=== PATIENT | female | born 1940 | race Caucasian/White ===

== ENCOUNTER → 2019-06-22 16:23 | Outpatient (BNVA) | payer MEDICARE, SELFPAY | PROVIDERS: Family Provider Nurse Practitioner Family; PCP Internal Medicine; Visit Provider Internal Medicine | DX: K52.9 Noninfective gastroenteritis and colitis, unspecified (principal); R19.7 Diarrhea, unspecified; R63.4 Abnormal weight loss | CPT/HCPCS: 80053; 82607; 83516; 84443; 85025; 85651 ==

== ENCOUNTER 2019-06-29 08:00 | Day surgery (SDC) | payer MEDICARE, MEDICAID, SELFPAY ==
[2019-06-26 13:34] VITALS: BMI 14.8
--- NOTE | 2019-06-29 08:21 | ANES.PREANE2 ---
Pre-Anesthetic Assessment Pre-Anesthetic Assessment: Height/Weight: Height 1.6 m Weight 38.102 kg Preop Diagnosis: Chronic diarrhea Proposed Procedure: Operation Date: 06/29/19 09:30 Proposed Procedures p EGD/COLON 44115/39237/ K52.9/ R63.4(Not Applicable) - Kan Lombardi MD s Colonoscopy(Not Applicable) - Kan Lombardi MD Last Intake: 21:00 Social: Packs per day: 1 Pack years: 58 Exam: Pre-Anes Outpt Exam: alert, oriented x 3 and regular rate & rhythm Additional Exam Findings (including area of procedure): diffuse rhonchi Airway: Submandibular: WNL Cervical ROM: WNL MP: 1 Dentition: False Pulmonary: Pulmonary: COPD Comments: ER 2 weeks for excacerbation CV/HEM: CV/HEM: HTN and ND Comments: 2010, CABG x 3 less than 1 block secondary leg weakness GI: Comments: remote hx bleeding past, 40y abdominal cramping & diarrhea Musc/skel: Musc/skel: Lower Back Pain Anesthetic Plan: ASA status: 3 PFSH Anesthesia PFSH: Social History (Updated 06/22/19 @ 13:30 by STEPHIE Lopez) Smoking and tobacco status: former smoker Alcohol intake: never History of recent travel: No Data Anesthesia Cardiac Studies: No Data to Display
--- NOTE | 2019-06-29 08:56 | P.HPUD_ITS ---
H&P update H&P Update: DATE OF SURGERY/PROCEDURE: 06/29/19 DATE H&P PERFORMED: 08/06 H&P UPDATE INFORMATION: H&P completed within last 30 days, No changes to prior documentation and H&P is in [facility] EMR on date indicated PREOP DIAGNOSIS: a PLANNED PROCEDURE: Operation Date: 06/29/19 09:30 Proposed Procedures p EGD/COLON 92607/90159/ K52.9/ R63.4(Not Applicable) - Kan Lombardi MD s Colonoscopy(Not Applicable) - Kan Lombardi MD Full H&P Perinent History: Family History: Family History (Updated 05/26/19 @ 09:42 by STEPHIE Lopez) Father Heart disease Brother Heart disease Sister Osteoporosis Social History: Social History Smoking and tobacco status: former smoker Alcohol intake: never History of recent travel: No
[2019-06-29] MEDS: carvedilol 6.25 mg Tablet PO (09:03)
[2019-06-29 09:04] VITALS: BP 105/64; PULSE 100; RESP 20; TEMP 36.4; O2SAT 97
[2019-06-29] MEDS: sodium chloride 0.9% 1,000 ML 30 ML (09:19)
--- NOTE | 2019-06-29 09:24 | ANES.PREANE2 ---
Pre-Anesthetic Assessment Pre-Anesthetic Assessment: Height/Weight: Height 1.6 m Weight 38.102 kg Temp Pulse Resp BP Pulse Ox 97.5 F L 100 20 H 105/64 97 06/29/19 09:04 06/29/19 09:04 06/29/19 09:04 06/29/19 09:04 06/29/19 09:04 Preop Diagnosis: chronic diarrhea Proposed Procedure: Operation Date: 06/29/19 09:30 Proposed Procedures p EGD/COLON 39831/09850/ K52.9/ R63.4(Not Applicable) - Kan Lombardi MD s Colonoscopy(Not Applicable) - Kan Lombardi MD Familial anesthetic complications: none Was Beta Donald taken within 24 hours: Yes (0900) Last intake: Intake Last Liquid Date 06/28/19 Last Liquid Time 08:30 Last Solid Date 06/27/19 Last Solid Time 23:00 Social: Social History: Tobacco (3 ppd) Exam: Pre-Anes Outpt Exam: alert, oriented x 3, clear to auscultation bilaterally and regular rate & rhythm Airway: Submandibular: WNL Cervical ROM: WNL MP: 2 Dentition: False (U&L) History/ROS: No significant history except as noted Pulmonary: Pulmonary: COPD (emphysema), Cough and MOORE (uses inhalers twice a week) CV/HEM: CV/HEM: [place] (CABG x3) Comments: AAA (cardiologists watching) : : None reported Hepatic: Hepatic: None reported GI: GI: PUD Metabolic: Metabolic: None reported Musc/skel: Musc/skel: Lower Back Pain (L2-L4 old compression fractures) and OA/DJD Neuropsych: Neuropsych: Anxiety Anesthetic Plan: ASA status: 3 Anesthesia: Anesthesia Evaluation and MAC Risk of > 500 ml blood loss (7ml/kg in children): No Meds/Allergies Current Medications: Current Medications Generic Name Dose Route Start Last Admin Trade Name Freq PRN Reason Stop Dose Admin Carvedilol 6.25 mg 06/29/19 09:00 06/29/19 09:03 Coreg PO 6.25 mg BID SETH Administration PFSH Anesthesia PFSH: Social History (Updated 06/22/19 @ 13:30 by STEPHIE Lopez) Smoking and tobacco status: former smoker Alcohol intake: never History of recent travel: No Data Anesthesia Cardiac Studies: No Data to Display
[2019-06-29 10:12] VITALS: BP 98/50; PULSE 67; RESP 16; TEMP 36.4; O2SAT 96
[2019-06-29 10:27] VITALS: BP 101/54; PULSE 68; RESP 18; O2SAT 100
--- NOTE | 2019-06-29 10:39 | ANE.PACU2 ---
 Inpatient post-anesthesia follow up: Airway intact: Yes Vital signs: Temperature 97.6 F Pulse Rate 68 Respiratory Rate 18 Blood Pressure 101/54 Pulse Oximetry 100 Oxygen Delivery Me thod Room Air Oxygen Flow Rate 2 Fraction of Inspir ed Oxygen Hydration adequate: Yes Nausea and vomiting: No Mental status: Baseline
[2019-06-29 10:43] VITALS: BP 129/68; PULSE 74; RESP 18; O2SAT 97
[2019-06-30 05:54] LABS: H. Pylori / CLO Test Negative
== END 2019-06-29 10:46 | disposition home or self-care (01) ==
PROVIDERS: Family Provider Nurse Practitioner Family; PCP Internal Medicine; Visit Provider Internal Medicine
PROC: 0DJ08ZZ Inspection of Upper Intestinal Tract, Via Natural or Artificial Opening Endoscopic (ICD-10-PCS; CPT 43235; principal; 2019-06-29 09:30)
PROC: 0DJD8ZZ Inspection of Lower Intestinal Tract, Via Natural or Artificial Opening Endoscopic (ICD-10-PCS; CPT 45378; 2019-06-29 09:30)
DX: R19.7 Diarrhea, unspecified (principal); Z79.891 Long term (current) use of opiate analgesic; Z79.01 Long term (current) use of anticoagulants; Z82.49 Family history of ischemic heart disease and other diseases of the circulatory system; Z87.891 Personal history of nicotine dependence; R63.4 Abnormal weight loss; Z68.1 Body mass index [BMI] 19.9 or less, adult; J43.9 Emphysema, unspecified; I25.10 Atherosclerotic heart disease of native coronary artery without angina pectoris; E78.5 Hyperlipidemia, unspecified
CPT/HCPCS: 12345; 43239; 45378; 82274; 83630; 87077; 87493; 87505; J2704; J7030; J7611

== ENCOUNTER 2019-07-24 06:32 | Day surgery (SDC) | payer MEDICARE, MEDICAID, SELFPAY ==
[2019-07-23 10:11] VITALS: BMI 13.7
[2019-07-24] VITALS (21 sets, daily range): BP systolic 98–181; BP diastolic 7–120; PULSE 85–99; RESP 18–36; TEMP 36.7–37.2; O2SAT 86–100
--- NOTE | 2019-07-24 | CT_ITS ---
Guided Bronchoscopy Planning CT images; total exam DLP: 552.05 mGy-cm MTDD
--- NOTE | 2019-07-24 07:05 | ANES.PREANE2 ---
Pre-Anesthetic Assessment Pre-Anesthetic Assessment: Height/Weight: Height 1.63 m Weight 36.287 kg Temp Pulse Resp BP Pulse Ox 98.7 F 90 18 98/7 98 07/24/19 06:45 07/24/19 06:45 07/24/19 06:45 07/24/19 06:45 07/24/19 06:45 Preop Diagnosis: Right upper lobe lung mass Proposed Procedure: Operation Date: 07/24/19 08:10 Proposed Procedures p Ebus with navagational bronoscopy(Not Applicable) - MD vijay Ribeiro Veran(Not Applicable) - Jordin Alberts MD Familial anesthetic complications: NO trouble with anehesia warfarin on saturday Was Beta Donald taken within 24 hours: Yes Last intake: Intake Last Liquid Date 07/23/19 Last Liquid Time 18:00 Last Solid Date 07/23/19 Last Solid Time 18:00 Social: Social History: Tobacco Packs per day: 1 ppd Exam: Additional Exam Findings (including area of procedure): coarse breath sounds, diminished Airway: Cervical ROM: WNL MP: 2 Dentition: False Additional comments: edentulous Pulmonary: Pulmonary: COPD Comments: emphysema CV/HEM: CV/HEM: Arrythmia, HTN and AL (10 years ago) Comments: pacer/defibrillatior - per patient's family the defibrillator is deactivated because her leads became corrroded and they couldn't replace it because she was to frail at the time. She decided to just have it deactivated and risk cardiac arrest over the risk of the operation. Pacer supposedly still works? EF 30% ( only 30% of her heart is still working ) AAA : : None reported Hepatic: Hepatic: None reported GI: GI: PUD Comments: recovering from chronic diarrhea, no diarrhea for 4-6 weeks now after yrn strong Metabolic: Metabolic: None reported Musc/skel: Comments: severe osteoporisis (brokekn arms, broken hip) - careful with positionig Neuropsych: Neuropsych: None reported Anesthetic Plan: ASA status: 4 Anesthesia: General Risk of > 500 ml blood loss (7ml/kg in children): No PFSH Anesthesia PFSH: Social History (Updated 07/23/19 @ 10:07 by Rosalina Cardenas) Smoking and tobacco status: current every day smoker cigarettes Packs smoked per day: 1 Years cigarettes smoked: 57 Quit status (tobacco): has tried quititng Number of times tried to quit tobacco: 4 Second hand smoke exposure: Yes Smoking risk assessment/counseling performed?: Yes Alcohol intake: never Household members: spouse Marital status: Current occupational status: retired History of recent travel: No Current gender identity: Female Data Anesthesia Cardiac Studies: No Data to Display
--- NOTE | 2019-07-24 08:04 | W.PM.OPSUD ---
Surgery/Procedure H&P Update DATE OF PROCEDURE: July 24, 2019 DATE H&P PERFORMED: 06/22/19 H&P UPDATE INFORMATION: I have reviewed H&P completed within last 30 days, I have examined patient prior to procedure and No changes to prior documentation PREOP DIAGNOSIS: Right upper lobe lung mass PRIMARY INDICATION FOR PROCEDURE: Right upper lobe lung mass suspected lung malignancy. PLANNED PROCEDURE: Operation Date: 07/24/19 08:10 Proposed Procedures p Ebus with navagational bronoscopy(Not Applicable) - MD vijay Ribeiro(Not Applicable) - Jordin Alberts MD
[2019-07-24] MEDS: lidocaine 1% INJ 20 mL XX (08:50)
--- NOTE | 2019-07-24 09:59 | SUR.OPER ---
balloon removed intact
--- NOTE | 2019-07-24 10:07 | PM.OP ---
Operative Report Date of procedure: July 24, 2019 Pre-op Diagnosis: Right upper lobe lung mass Post-op diagnosis: same Brief History: 79-year-old female with emphysema, COPD comes in with right upper lobe lung mass. Had a recent PET/CT which showed elevated FDG uptake in the right upper lobe lung mass. No significant evidence of metastatic disease. Procedure: Name of the procedure: Bronchoscopy with inspection of the airway, endobronchial ultrasound-guided transbronchial needle aspiration of lymph nodes, navigational bronchoscopy guided transbronchial biopsies, fine-needle aspiration and cytology and control of bleeding. Indication: Right upper lobe lung mass Anesthesia: General anesthesia. Local anesthesia: The nazanin in the right and left mainstem bronchi were anesthetized with 1% lidocaine, 3 mL. Description of the procedure: The procedure was explained to the patient and the consent was obtained. The patient was brought to the OR. The patient underwent endotracheal intubation for general anesthesia. Timeout was performed. Following induction of general anesthesia, the bronchoscope was advanced through the ET tube. The lower trachea appeared to normal. The nazanin was sharp. The nazanin, the right and left mainstem bronchi are anesthetized with 1% lidocaine. In a systematic manner bilateral bronchial tree was then examined. The bronchoscope was advanced into the left mainstem bronchus. There was no erythema,mucus and areas of cobblestoning. The left upper lobe, lingula and left lower lobe bronchi were examined up to the third subsegmental level and no abnormalities were identified. The bronchoscope was then introduced into the right mainstem bronchus. The right upper lobe, right middle lobe and right lower lobe bronchi were examined up to the third subsegmental level and no abnormalities were identified. There was mild airway erythema throughout the lung. The right upper lobe mass was then reached using the navigational bronchoscopy. Multiple transbronchial biopsy, fine-needle aspiration and cytology samples are obtained. The endobronchial ultrasound was introduced through the ET tube. No significant mediastinal and hilar lymphadenopathy was identified with the ultrasound. Transbronchial needle aspiration was performed from 7, 10 R lymph nodes. Samples: 1. The transbronchial biopsies are sent for histopathology.. 2. The fine-needle aspiration and Cytobrush are sent for cytology. 3. Transbronchial needle aspiration of 7 and 10 R lymph node stations were sent for cytology. Complications: There was no immediate complications. Follow-up: 1. Follow-up with me in 2 weeks time.
--- NOTE | 2019-07-24 10:28 | XR_ITS ---
WS: [id number] XR chest 1V portable [id number] REASON FOR EXAM: post bronchoscopy FINDINGS: Fullness in the right apex the lung is seen suggesting a mass defect. There is also a left pleural effusion seen. A dual electrode pacemaker is seen. Comparison is made to November 08, 2008 the fullness in the right hilum not seen. XR/XR chest 1V portable [id number] IMPRESSION: Suspect neoplasm right upper lung There is left lower lung pleural effusion Dual electrode pacemaker Previous sternotomy.
--- NOTE | 2019-07-24 11:59 | SUR.PHASEI ---
1017 RECIEVED PT SLEEPY WITH WEAK RESP SATS 86% ON 8LMASK PT HOB UPT PT AWAKES TO VOICE PT ENCOURAGED TO COUGH AND DEEP BREATH ALBUTIEROL NEB ORDERED AND CRAN AND DR MICHEL AT BEDSIDE. 1018 NEB STARTED ON 10 L MASK SATS STILL LOW PT LESS ALERT NOWL 1024 PT BAGGED BY ANIMAL PATHOLOGIST AT BEDSIDE AND RESP CALLED FOR BIPAP SET UP 1028 PT ON BIPAP REMAINS RESTLESS BUT NOT CONCIOUS, ABG ORDERED RT AT BEDSIDE ATTEMPTING IN RT WRIST. O2 UP TO 60%SATS 88% 1054 DR ORELLANA AT BEDSIDE, AMANDA MACK AT BEDSIDE FAMILY UPDATED BY JAVA FLEX DEVELOPER. PT AWAKES EASILY NOW RESP STILL RAPID, ABD RESULTS AT BEDSIDE, BUT PT IS IMPROVING, WILL MONITOR CLOSELY FIO2 DOWN TO 30 % 1112 FAMILY AT BEDSIDE PT ALERT AND TALKATIVE PT OFF BIPAP ON RA SATS DOWN TO 88% PT PLACED ON 2LNC SATS QUICKLY UP TO 94% 1130 PT ALERT VERBALIZED APPROP SATS 100% ON 2LNC PT SLEEPS IF NOT DISTURBED PT TO OPS WILL CONTINUE TO MONITOR CLOSELY, VSS. 1135 PT TO OPS AWAKE ALERT TALKATIVE WITH FAMILY, SATS 99% O2 DOWN TO 1LNC HANDOFF AT BEDSIDE
[2019-07-24] MEDS: sodium chloride 0.9% 1,000 ML 30 ML IV (12:47)
[2019-07-25 19:26] LABS: ABG PCO2 53.8 mmHg (35-45); ABG PH Result 7.25 (7.35-7.45)
[2019-07-25 19:27] LABS: Base Excess ABG -4.1 mmol/L (-2.0-2.0); Blood Gas Operator Identificat GLC; Blood Gas Sample Site RBRACH; Blood Gas Sample Type ARTERIAL; HCO3 ABG 23.5 mmol/L (22-26); Oxygen Device BIPAP
[2019-07-25 19:28] LABS: Arterial Blood Gas Hematocrit 33.5 % (37-47); Blood Gas CCRB Time 1050; Carboxyhemoglobin 1.2 %THgb (0.4-20.1); Methemoglobin 0.3 % (0.4-1.5); Total Hemoglobin 10.9 g/dL (12-16)
== END 2019-07-24 12:40 | disposition home or self-care (01) ==
PROVIDERS: Anesthesiology; Family Provider Nurse Practitioner Family; PCP Family Medicine; Visit Provider Internal Medicine Critical Care Medicine
PROC: BB4BZZZ Ultrasonography of Pleura (ICD-10-PCS; CPT 31623; principal; 2019-07-24 08:10)
PROC: 0BJ08ZZ Inspection of Tracheobronchial Tree, Via Natural or Artificial Opening Endoscopic (ICD-10-PCS; CPT 31622; 2019-07-24 08:10)
DX: R91.8 Other nonspecific abnormal finding of lung field (principal); J43.9 Emphysema, unspecified; F17.210 Nicotine dependence, cigarettes, uncomplicated; I10 Essential (primary) hypertension; I25.2 Old myocardial infarction; Z79.01 Long term (current) use of anticoagulants; Z82.49 Family history of ischemic heart disease and other diseases of the circulatory system
CPT/HCPCS: 31623; 31628; 31629; 31652; 12345; 71045; 71250; 77011; 82805; 88112; 88173; 88305; 88307; 94660; J0330; J2001; J2370; J2405; J2704; J3010; J3490; J7030; J7611

== ENCOUNTER 2019-08-05 09:44 | Outpatient (CLI) | payer MEDICARE, MEDICAID, SELFPAY ==
--- NOTE | 2019-08-05 15:29 | N.ONRAD NP_ITS ---
Radiation Oncology New Patient Visit Patient: Amparo Lauren MR#: [id number] : 1940> Age: 79> Sex: Female> Dictated by: Dr. Eduin Shaffer Date of Service: 08/05/2019 Referring Physician(s) : Dr. Modi Diagnosis: Lung, right, upper lobe, atypical cells on biopsy that are highly suspicious for malignancy in a mass that has an overwhelming appearance of malignancy on both CT and PET scan Radiotherapy to date: Summary > No prior radiation therapy. Chief Complaint / History of Present Illness: Mrs. Lauren is a 79-year-old lady who has a significant past medical history of heart disease and COPD who presented in late May with a COPD exacerbation. She was experiencing enough chest discomfort that a CTA was performed. That study revealed a highly suspicious appearing mass measuring about 3 cm in the apex of the right lung. A PET scan was performed to 07/04/19. The right upper lobe mass measured 3.3 x 2.7cm, was solid, and had a SUV of 27. It was specifically stated the mass represented malignancy unless otherwise proven. A small amount of activity was noted in an upper right hilar node, benign versus malignant. She saw Dr. Alberts and underwent navigational bronchoscopy on 07/24/2019. He reached the area of the tumor in the upper lobe with navigation. The needle biopsy from the mass showed a fragment of atypical cells highly suspicious for malignancy. The pathologist indicated that the findings were not completely diagnostic of malignancy. Washings revealed inflammatory cells but no evidence of malignancy. Lymph nodes from station 7 and R 10 were negative. Mrs. Thomas has significant medical problems, her performance status is poor, she only weighs 78 pounds, and she is not a good candidate for surgery at all. She is referred for evaluation for SBRT. Current Medications: Carvedilol, coumadin, megestrol Acetate, ocuvite Extra, vitamin B12, zolpidem Tartrate. Allergies: Sulfa Antibiotics. Medical History: - Chronic obstructive pulmonary disease, - congestive heart failure, - coronary artery disease, - gastroesophageal reflux disease, - hyperlipidemia. No history of collagen vascular disease. No previous radiation therapy. Surgical History: Cholecystectomy, hip surgery, implanted cardioverter-defibrillator and open heart surgery. Family History: Father is at age 52 having experienced heart disease. Mother is at age 89 having experienced natural causes. Brother is at age 55 having experienced heart disease. Brother is at age 60 having experienced heart disease. Sister is at age 65 having experienced pneumonia. Sister is at age 80. sister that was 80 had cancer all over Social History: Last screened on 08/05/2019 - Current every day smoker 1.0 pack/day for 57 years (57 pack years). Last screened on 08/05/2019 - Never drank. Patient indicated use of the following products: cigarettes. Current Complaints / Review of Systems: . Vital Signs: Performed on 08/05/2019 10:59 AM Height - 52.50 in, Weight - 81.0 lbs (high), BSA - 1.15 sq.m, BMI - 20.66, Temperature - 97.2 f (low), Pulse - 75 /min, Respiration - 18 /min, O2 Sat - 100 %, Pain - 4 and BP - 102/ 60 mm(hg)(/low). Physical Exam: Alert, oriented, no distress. She appears chronically ill and poorly nourished. No cervical, or supraclavicular lymphadenopathy. She has no tenderness over the brachial plexus on the right. Lungs clear to percussion, somewhat hyperresonant. On auscultation breath sounds are diminished bilaterally but are largely clear. No rales or wheezes. She had a few inspiratory rhonchi on the right. Heart rhythm was regular. No murmur or gallop or rub noted. Abdomen no distention. No organomegaly or mass or tenderness. Musculoskeletal - she has a normal but slightly unsteady gait. She had assistance getting on the exam table. No bone tenderness to palpation or percussion. Performance Status: KPS 50/100 Pathology: See HPI. Lab: Imaging: See HPI Impression: Mrs. Lauren is an elderly lady with multiple medical problems who has a right upper lobe lung mass that is overwhelmingly malignant on imaging. On biopsy she says she has very suspicious findings for malignancy. Based on these findings, I feel it is very safe to presume that she has carcinoma of the lung. Her medical problems and overall performance status preclude surgery as an option. She has been referred for SBRT. I feel Mrs. Thomas is a good candidate for SBRT. I reviewed her imaging. The mass is near the apex of the lung but is posterior. I do not feel that treatment will put the brachial plexus at any major risk. I did discuss that with her and cautioned her there could be chronic arm pain or weakness if the brachial plexus is injured by treatment. I discussed the logistics of SBRT. I discussed that typically acute side effects are minimal, primarily mild fatigue. I discussed that she will develop some pneumonitis and ultimately fibrosis around the area of the tumor. I told her that this fibrosis will be small in volume and not likely to result in long-term dyspnea. I discussed that her heart will be well out of the field. She does have a pacemaker that will need to be monitored. I discussed the current pacemaker protocol with the chief therapist and we will follow these guidelines. I discussed the risk of skin reaction and chest wall pain that could be chronic. Mrs. Lauren wishes to proceed with SBRT is recommended. Plan: Simulation will be scheduled. Signed by: 08/05/2019 3:28:26 PM <<Signature on File>> Time spent with patient: CPT Code: CPT Code:
--- NOTE | 2019-08-06 15:31 | ONC CON_ITS ---
Dr. Modi New Patient Note Patient: Amparo Lauren Unit #: [id number]: 1940 Dicatated By: More Modi M.D.Date of Visit: Aug 05, 2019 Onc MED New Patient/Consult Referring Physician: Dr. LEIGHTON ORELLANA M.D. History of Present Illness: Mrs. Amparo Lauren, is a 79-year-old female with history of coronary artery disease status post bypass ???2 in 2008 status post ICD implantation in 2009, congestive heart failure ejection patient 30%, GERD, from emphysema, COPD, found to have a right upper lung mass underwent CT PET scan on 07/04/2019 which showed 3.3 x 2.7 cm solid right upper lobe mass SUV 27. And mild activity in the right upper hilar lymph node with an SUV of 3.1 subsequently underwent bronchoscopy on 07/24/2019, bronchial wash shows no evidence of dysplastic or neoplastic process but FNA right upper lobe mass showed non-small cell carcinoma and there are too few cells present in the smear to perform molecular studies that would differentiated adenocarcinoma for squamous cell carcinoma. 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 Because of her poor pulmonary reserve and advanced stage cardiac condition and overall poor performance status surgery was not considered and now being evaluated for combined chemoradiation Long-standing history of smoking still smoke about pack a day denies alcohol use Patient denies any hemoptysis or hematemesis, denies any headaches or blurred vision or double vision, denies any fever chills. Denies any nausea or vomiting . Patient and her daughter said she would not consider chemotherapy regardless but agreed to see radiation oncology. Past Medical History: Ms. Lauren's medical history consists of chronic obstructive pulmonary disease, congestive heart failure, coronary artery disease, gastroesophageal reflux disease, and hyperlipidemia. Past Surgical History: Ms. Huis surgical/procedural history consists of cholecystectomy, hip surgery, implanted cardioverter-defibrillator, and open heart surgery. Medications: Carvedilol 1 Tablet (of 6.25 mg) Oral b.i.d., Coumadin 1 Tablet (of 2 mg) Oral daily, Megestrol Acetate 1 Tablet Oral daily, Ocuvite Extra 1 Tablet Oral daily, Omeprazole 1 (20 mg) Capsule Delayed Release Oral daily, Vitamin B12 1 Tablet Oral daily, Zolpidem Tartrate 1 Tablet Oral daily Allergies: Sulfa Antibiotics Social History: Ms. Lauren is and she is retired. She is a daily smoker who has smoked 1.0 pack/day for 57 years. She has no history of drinking. She has indicated exposure to the following products: cigarettes. Family History: Ms. Lauren's mother at age 89: natural causes. Ms. Lauren's father at age 52: heart disease. Ms. Lauren has 2 brothers: 2 . Ms. Lauren's first brother's heart disease. Another brother's heart disease. She has 2 sisters: 2 . Ms. Lauren's first sister's pneumonia. sister that was 80 had cancer all over. Review Of Symptoms: Constitutional - Appetite is poor and weight is decreasing. No fever, chills, hot flashes, or night sweats. Energy level is poor, ENMT - Positive for sinus congestion/drainage. No mouth sores. No sore throat or difficulty swallowing, Hematologic/Lymphatic - Positive for easy bruisnig, Respiratory - Positive for shortness of breath and cough. No pleuritic pain or hemoptysis, Cardiovascular - No angina pain. No palpitations, Gastrointestinal - No nausea or vomiting. No heartburn or acid reflux. No diarrhea or constipation. No blood in the stool or black stools, Genitourinary (F) - No dysuria or hematuria. No urinary frequency. No urgency or incontinence, Musculoskeletal - Positive for back pain, Neurologic - No headache. Occasional dizziness. No numbness/paresthesias or other focal neurologic symptoms, Psychiatric - Positive for anxiety and depression. Vital Signs: Performed on Aug 05, 2019 14:41: 52.50 in, 81.0 lbs, 97.2 F, 75, 18, 102/60 mm(hg), 100 %, 0, Performed on Aug 05, 2019 14:41: 20.662 kg/m2, and Performed on Aug 05, 2019 10:59: 1.15 sq.m. Performance Status: 2 - Ambulatory/capable of all self-care, unable to perform any work activities. Up and about more than 50% of waking hours. (ECOG) Physical Examination: ENMT - No oral exudates, ulcers, masses, thrush or mucositis. Oropharynx clear. Tongue normal, Respiratory - poor air entry otherwise clear, Cardiovascular - Regular rate and rhythm of heart, Abdomen - Non-tender, non-distended, . Good bowel sounds. No guarding or rebound tenderness. No pulsatile masses, Extremities - no edema. Lab/Imaging: Most recent lab results are not available for this patient. Impression: Non-small cell lung cancer per FNA right upper lobe done on 07/24/2019, cytology showed too few cells present in the severe to perform special molecular studies that will differentiated adenocarcinoma from squamous cell carcinoma. 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 Plan: Discussed with patient regarding her disease status and treatment options, due to her underlying poor pulmonary reserve and advanced stage cardiac condition and overall poor performance status, patient is not a candidate for surgery so other option would be combined chemoradiation but patient has decided not to proceed with chemotherapy rather consider radiation alone. Discussed with patient regarding the role of concurrent chemotherapy which may improve overall response and survival but with significant increase in toxicity especially with underlying comorbid conditions. Patient and her daughter decided not to proceed with chemotherapy knowing the risk versus benefits. So we'll refer her to radiation oncology for evaluation and management, patient also opted to follow with , in future for follow-up as she will be seeing him regular basis. We will see her on as-needed basis. Signed By: More Modi M.D. <<Signature on File>>
== END 2019-08-05 09:45 | disposition home or self-care (01) ==
LOC: ONCMED 09:44
PROVIDERS: Family Provider Nurse Practitioner Family; PCP Family Medicine; Referring Provider Internal Medicine Critical Care Medicine; Visit Provider Internal Medicine Hematology & Oncology
DX: C34.11 Malignant neoplasm of upper lobe, right bronchus or lung (principal); I50.9 Heart failure, unspecified; I25.10 Atherosclerotic heart disease of native coronary artery without angina pectoris; K21.9 Gastro-esophageal reflux disease without esophagitis; E78.5 Hyperlipidemia, unspecified; F17.210 Nicotine dependence, cigarettes, uncomplicated; J43.9 Emphysema, unspecified; Z79.01 Long term (current) use of anticoagulants; Z95.810 Presence of automatic (implantable) cardiac defibrillator; Z95.1 Presence of aortocoronary bypass graft
CPT/HCPCS: 99203; 99204; G0463

== ENCOUNTER 2019-08-12 07:32 | Outpatient (RCR) | payer MEDICARE, MEDICAID, SELFPAY ==
--- NOTE | 2019-08-12 | CT_ITS ---
Radiation Therapy Planning CT images; total exam DLP: 931.12 mGy-cm MTDD
== END 2019-08-18 23:59 | disposition home or self-care (01) ==
LOC: ONCMED 07:32
PROVIDERS: Family Provider Nurse Practitioner Family; PCP Family Medicine; Visit Provider Specialist
DX: C34.11 Malignant neoplasm of upper lobe, right bronchus or lung (principal)
CPT/HCPCS: 77334

== ENCOUNTER 2019-09-14 06:52 | Outpatient (RCR) | payer MEDICARE, MEDICAID, SELFPAY ==
--- NOTE | 2019-09-08 15:23 | ONCRAD TMN_ITS ---
Radiation Oncology Weekly Treatment Management Patient: Amparo Lauren MR#: [id number] : 1940> Age: 79> Sex: Female Dictated by: Everette Mullins Date of Service: 09/08/2019 Referring Physician(s) : More Modi M.D. 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 ID: [id number], Energy: 15X/6X, Dose/Fx (cGy): 1,000, #Fx: 2 / 5, Dose Correction (cGy): 0, Total Dose (cGy): 2,000, Start Date: 09/01/2019, Elapsed Days: 2 Current Complaints/Interval History: Notes some increase in fatigue. No change in breathing. Minimal inferior chest pain with deep breath. Some diarrhea x 3 this AM controlled with Imodium x 1. Holding fluids down well. No cough,F, C, N, or V. Smoking very little now. Constitutional Complains of lack of appetite and fatigue. Denies fever and change in weight. Cardiovascular Denies chest pain, dyspnea, edema and palpitations. Respiratory Complains of cough Patient states her cough and SOB are the same as they have been over the past few weeks and have not worsened., dyspnea and pleuritic chest pain. Gastrointestinal Complains of diarrhea Patient states she is using immodium, which is helping to control her diarrhea. States she has about 3-4 bowel movements per day.. Denies abdominal pain, heartburn / dyspepsia, nausea and vomiting. Genitourinary (F) Denies dysuria, frequency, hematuria and urgency. Musculoskeletal Complains of bone pain Patient states she has some pain in her thighs when she goes to walk after sitting extended periods of time. States this has been going on for a while .. Denies joint pain. Neurologic Denies dizziness and headaches. Psychiatric Complains of depression Patient states she has some depression, but is taking medications for it and feels it is under control right now.. Current Medications: Carvedilol, coumadin, hydrocodone-Acetaminophen, megestrol Acetate, ocuvite Extra, omeprazole, vitamin B12, zolpidem Tartrate. Allergies: Sulfa Antibiotics. Vital Signs: Performed on 09/08/2019 3:12 PM Height - 62 in, Temperature - 98.2 f, Pulse - 84, Respiration - 18, O2 Sat - 97 %, Pain - 1 and BP - 102/ 60 mm(hg)(/low). Physical Exam: Appears stable, no skin erythema or desquamation. Performance Status: 2 - Ambulatory/capable of all self-care, unable to perform any work activities. Up and about more than 50% of waking hours. (ECOG) Lab: None pending in Radiation Oncology. Imaging: No new diagnostic imaging was performed since the last weekly treatment visit. All radiation therapy related imaging (including but not limited to kV, MV, and CBCT generated images) was reviewed. Appropriate changes, if any, were made to assure accurate target localization. Impression/Plan: Tolerating treatment well with expected side effects. Continue treatment as planned. Will resume treatment today. Plan to treat today, and next Saturday or Saturday. Discussed hydration, caloric intake and smoking cessation. CPT: 67863 Signed by: Everette Mullins>09/08/2019 3:21:39 PM <<Signature on File>>
== END 2019-09-17 23:59 | disposition home or self-care (01) ==
LOC: ONCMED 06:52
PROVIDERS: Family Provider Nurse Practitioner Family; PCP Family Medicine; Visit Provider Radiology Radiation Oncology
DX: Z51.0 Encounter for antineoplastic radiation therapy (principal); C34.11 Malignant neoplasm of upper lobe, right bronchus or lung; F17.200 Nicotine dependence, unspecified, uncomplicated
CPT/HCPCS: 77293; 77300; 77301; 77336; 77338; 77373

== ENCOUNTER 2019-10-07 09:03 | Outpatient (CLI) | payer MEDICARE, MEDICAID, SELFPAY ==
--- NOTE | 2019-10-07 09:22 | CT_ITS ---
WS: [id number] CT CHEST WITH INTRAVENOUS CONTRAST HISTORY: LUNG CA TECHNIQUE: Contiguous 5 mm axial imaging performed on the thorax. Coronal and sagittal reformats are submitted. All CT scans at [facility] use at least one of these dose optimization techniq ues: automated exposure control; mA and/or kV adjustment per patient size (includes targeted exams wh ere dose is matched to clinical indication); or iterative reconstruction. CONTRAST: Visipaque 320; 95 mL IV. DLP: 427.45 mGycm COMPARISON: 06/15/[address] 07/04/2019 Lungs and central airway: Severe chronic emphysema. Bullous and bleb disease and pulmonary hyperexpan cristel. PET/CT positive neoplasm at the RIGHT apex has slightly decreased in size since the prior evalu ation of 07/04/2019. This mass measures 3.0 x 3.0 x 2.8 cm. Increasing cavitary component. There is pl eural thickening and tethering extending to the apex. No additional suspicious masses or nodules. Pleura: Normal. No pleural effusion. Heart and pericardium: Slightly enlarged cardiac chambers. There is a dual lead LEFT subclavian pacer /defibrillator. Heavy calcification in the [place] coronary arteries. Prior CABG. Mediastinum and ashly: No enlarging lymph nodes. Several of the lymph nodes within the mediastinum and hilar regions contain central benign-appearing calcifications. Indeterminate lymph node at the RIGHT hilum as seen on the PET/CT measures 5 mm in short axis diameter and has not increased in size. Vessels: Moderate atherosclerosis aorta. Ectasia with no aneurysm. Chest wall and lower neck: No soft tissue masses. Upper abdomen: Extensive atherosclerotic changes continue into the upper abdominal aorta. Prior gerda cystectomy. No adrenal mass. Osseous structures: Severe osteopenia. No osteoblastic or osteolytic bone disease. CT/CT chest w con* [id number] IMPRESSION: 1. Slight decrease in size of the RIGHT upper lobe pulmonary neoplasm since . Neoplasm now measures 3.0 x 3.0 x 2.8 cm with mild central cavitation/ necrosis. 2. Stable mediastinal and hilar lymph nodes. No enlarging lymph nodes. 3. Severe chronic emphysema. 4. Atherosclerosis aorta and coronary arteries and prior CABG.
[2019-10-07 09:58] LABS: Blood Urea Nitrogen 13 mg/dL (8-23)
[2019-10-07] MEDS: iodixanol 320 mg/mL 100mL Btl IV (10:18)
== END 2019-10-07 09:04 | disposition home or self-care (01) ==
LOC: RADWPI 09:06
PROVIDERS: Family Provider Nurse Practitioner Family; PCP Family Medicine; Visit Provider Radiology Radiation Oncology
DX: C34.11 Malignant neoplasm of upper lobe, right bronchus or lung (principal); J43.9 Emphysema, unspecified; I70.0 Atherosclerosis of aorta; I70.209 Unspecified atherosclerosis of native arteries of extremities, unspecified extremity; Z95.1 Presence of aortocoronary bypass graft
CPT/HCPCS: 71260; 82565; 84520; Q9967

== ENCOUNTER 2019-11-03 15:11 | Outpatient (CLI) | payer MEDICARE, MEDICAID, SELFPAY ==
--- NOTE | 2019-11-03 08:00 | USCV_ITS ---
Amparo Lauren Age: 79 Gender: F : 1940 Exam Date: 11/03/2019 15:18 Ordering Phys: Delores Kinney MD Technologist: Fidel Medina Exam Location: [facility] [place] Indication: CHF BP: 122 / 74 HR: 65 Rhythm: Sinus Technical Quality: Adequate MEASUREMENTS (Male / Female) Normal Values 2D ECHO LV Diastolic Diameter PLAX 4.0 cm 4.2 - 5.9 / 3.9 - 5.3 cm LV Systolic Diameter PLAX 3.0 cm IVS Diastolic Thickness 0.8 cm 0.6 - 1.0 / 0.6 - 0.9 cm IVS Systolic Thickness 1.3 cm LVPW Diastolic Thickness 1.0 cm 0.6 - 1.0 / 0.6 - 0.9 cm LVPW Systolic Thickness 1.3 cm LVOT Diameter 2.0 cm LV Ejection Fraction 2D Teich 47.4 % LV Ejection Fraction MOD 2C 60.6 % LV Ejection Fraction 2C AL 59.6 % LA Diameter 2.3 cm LA Width 3.5 cm LA Height 3.5 cm RA Width 3.6 cm RA Height 2.9 cm M-MODE LV Diastolic Diameter MM 4.4 cm 4.2 - 5.9 / 3.9 - 5.3 cm LV Systolic Diameter MM 2.9 cm LV Ejection Fraction MM Teich 65.5 % IVS Diastolic Thickness MM 0.8 cm 0.6 - 1.0 / 0.6 - 0.9 cm IVS Systolic Thickness MM 1.2 cm LVPW Diastolic Thickness MM 0.9 cm 0.6 - 1.0 / 0.6 - 0.9 cm LVPW Systolic Thickness MM 1.4 cm RV Diastolic Diameter MM 1.2 cm Aortic Annulus Diameter 3.1 cm LA Ao Ratio MM 0.8 MV E Point Septal Separation 1.0 cm DOPPLER AV Peak Velocity 247.0 cm/s LVOT Peak Velocity 68.0 cm/s AV Area Cont Eq vti 0.8 cm squared AV Area Cont Eq pk 0.9 cm squared MV Area PHT 5.0 cm squared Mitral E to A Ratio 0.9 MV E' Velocity 8.0 cm/s Mitral E to MV E' Ratio 8.2 Mitral E to LV E' Lateral Ratio 9.4 Mitral E to LV E' Septal Ratio 7.4 FINDINGS Left Ventricle Normal left ventricular cavity size. Moderately decreased left ventricular systolic function. Left ventricular ejection fraction is estimated at 30 %. There is moderate to severe hypokinesis of anteroseptal, mid to apical inferoseptal and apical barroso. Normal diastolic function. Right Ventricle Normal right ventricular size and systolic function. ICD wire visualized in the right ventricle. Right Atrium Normal right atrial size. Right atrial pressure estimated at 3 mmHg. Left Atrium Left atrium not well visualized. Mitral Valve Moderate mitral annular calcification. No mitral valve stenosis. Mild mitral valve regurgitation. Aortic Valve Moderately thickened and calcified aortic valve. Mild aortic valve stenosis, peak velocity 2.5 m/s, mean gradient 10.2 mmHg, ANNETTE 0.84 cm squared. Mild to moderate aortic valve regurgitation. Tricuspid Valve Structurally normal tricuspid valve. Trace tricuspid valve regurgitation. Pulmonic Valve Pulmonic valve not well visualized. Trace pulmonary valve regurgitation. Pericardium No pericardial effusion. Aorta Normal size aortic root and proximal ascending aorta. CONCLUSIONS 1. Normal left ventricular cavity size. Moderately decreased left ventricular systolic function. Left ventricular ejection fraction is estimated at 30 %. There is moderate to severe hypokinesis of anteroseptal, mid to apical inferoseptal and apical barroso. Normal diastolic function. 2. Normal right ventricular size and systolic function. 3. Mild aortic valve stenosis, peak velocity 2.5 m/s, mean gradient 10.2 mmHg, ANNETTE 0.84 cm squared. Mild to moderate aortic valve regurgitation. 4. No prior similar studies to compare. Delores Kinney MD (Electronically Signed) Final Date: 04 November 2019 18:27 S
== END 2019-11-03 15:12 | disposition home or self-care (01) ==
LOC: US 15:13
PROVIDERS: PCP Internal Medicine; Visit Provider Internal Medicine Cardiovascular Disease
DX: I50.9 Heart failure, unspecified (principal); I35.0 Nonrheumatic aortic (valve) stenosis; I35.1 Nonrheumatic aortic (valve) insufficiency
CPT/HCPCS: 93306

== ENCOUNTER → 2020-05-10 12:40 | Outpatient (BNVA) | payer MEDICARE, MEDICAID, SELFPAY | PROVIDERS: PCP Internal Medicine; Visit Provider Internal Medicine Cardiovascular Disease | DX: I25.810 Atherosclerosis of coronary artery bypass graft(s) without angina pectoris (principal); I50.9 Heart failure, unspecified; Z79.01 Long term (current) use of anticoagulants | CPT/HCPCS: 80053; 85025; 85610 ==